=== PATIENT | female | born 1960 | race Caucasian/White ===

== ENCOUNTER 2016-10-19 19:43 | Emergency (ER) | payer OTHER ==
[~2016-10-19] VITALS: Ht 160 cm; Wt 62.1 kg
[~2016-10-19 19:43] MED LIST: ACETAMINOPHEN650 M4 PO; AFRIN15 M1 NS; ALBUTEROL17 GM INH; ALPRAZOLAM PO; AMOXICILLIN PO; ATARAX PO; ATENOLOL; ATENOLOL PO; AUGMENTIN PO; BUTALBITAL COMP PO; CELEXA; CELEXA PO; CELEXA20 MG PO; COLCRYS0.6 MG PO; DELTASONE20 MG PO; DICLOFENAC PO; DOXYCYCLINE MO100 MG PO; ESTROVEN ENER400 MCG PO; FLAGYL PO; FLEXERIL10 M1 PO; FLEXERIL10 MG PO; HCTZ; HYDROCHLOROTHIA25 MG PO; INDERAL60 MG PO; INDOMETHACIN75 MG PO; KEFLEX500 MG PO; LEVOTHROID125 MCG PO; LIPITOR20 MG PO; MEDI-MECLIZINE25 M1 PO; MEDROL4 MG/DOSE- PO; NAPROSYN-EC500 M1 PO; PANTOPRAZOLE SO40 MG PO; PEPCID AC20 M2 PO; PHENERGAN DM1 ML PO; PREDNISONE PO; PROMETHAZINE D118 ML PO; PROTONIX; RANITIDINE HCL150 M1 PO; ROBITUSSIN ALL118 ML PO; SILVADENE TOP; SYNTHROID; SYNTHROID PO; THYROID MEDICINE; TYLENOL #3 PO; TYLOX 5/500 CAP1 CAP PO; ULTRAM PO; VOLTAREN75 MG PO; ZANTAC PO; ZANTAC150 MG PO; ZITHROMAX1 G/PKT PO
== END 2016-10-19 22:55 | disposition home or self-care (01) ==
LOC: CED 19:43 → CFTX 19:43
DX: L29.8 Other pruritus (principal); K21.9 Gastro-esophageal reflux disease without esophagitis
CPT/HCPCS: 99282